=== PATIENT | male | born 1965 | race Caucasian/White ===

== ENCOUNTER 2024-08-29 12:56 | Emergency (ER) | payer MEDICAID ==
[~2024-08-29] VITALS: Ht 175.3 cm; Wt 72.7 kg
[2024-08-29 13:00] VITALS: BP 146/77; PULSE 113; RESP 24; O2SAT 95
[2024-08-29] MEDS: SODIUM CHLORIDE 0.9% 1,000 ML IV ONE (13:30)
[2024-08-29 14:02] LABS: Base Excess 0.5 mmol/L (-2.0-3.0)
[2024-08-29 15:55] LABS: Basophils # (auto) 0 10 ^3/uL (0-0.2); Basophils % (auto) 0.4 % (0.0-2.0); Eosinophils # (auto) 0 10 ^3/uL (0-0.8); Hematocrit 50.7 % (41.0-53.0); Hemoglobin 17.5 g/dL (13.5-17.5); Lymphocytes # (auto) 3.1 10 ^3/uL (0.4-5.4); Lymphocytes % (auto) 25.9 % (10.0-50.0); Mean Corpuscular Hemoglobin 29.7 pg (28.0-32.0); Mean Corpuscular Hgb Conc. 34.5 g/dL (32.0-36.0); Mean Corpuscular Volume 86.1 fL (80.0-100.0); Monocytes % (auto) 8.6 % (0.0-12.0); Neutrophils # (auto) 7.9 10 ^3/uL (1.6-8.6); Neutrophils % (auto) 65.1 % (37.0-80.0); Nucleated Red Blood Cells % 0.1 %; Platelet Count (auto) 238 10^3/uL (140-450); Red Blood Cells 5.89 10^6/uL (4.5-5.90); Red Cell Distribution Width 13.2 % (11.8-14.3); White Blood Cell 12.1 10^3/uL (4.4-10.8)
--- NOTE | 2024-08-29 16:02 | ED.PDOC ---
History of present illness HPI Comments MSE note: 59 Y M history of diabetes BIBA with with CC of hyperglycemia. Per EMS, patient reported nausea and vomiting x1 week. Patient's Accu-Chek was 500 upon arrival to the ED. Patient states he does not currently take any medications for his diabetes. Chief Complaint: Hyperglycemia Time Seen by MD: 13:16 Primary Care Provider: NONE History of present illness: Nurses Notes, Cord Cutter Notes, Medications, Allergies Allergies: Coded Allergies: NO KNOWN ALLERGIES (Unverified , 04/22/14) Information Source: Patient, Emergency Med Personnel Mode of Arrival: EMS Timing: Weeks Duration: Since onset Prehospital treatment: Accucheck Past Medical History PAST MEDICAL HISTORY: DM All Other Systems: Deferred Physical Exam Exam Comments Patient eloped prior to exam General Appearance: Other (Not done) HEENT: NOT DONE Neck: NOT DONE Respiratory: NOT DONE Cardiovascular: NOT DONE Breast Exam: Other Gastrointestinal: NOT DONE Genitalia: Other (Not done) Pelvic: Other (Not done) Rectal: Other (Not done) Extremities: NOT DONE Neurologic: NOT DONE Cerebellar Function: NOT DONE Reflexes: NOT DONE Skin: NOT DONE Lymphatic: NOT DONE Was a procedure done? Was a procedure done?: No Differential Diagnosis (DM) Differential Diagnosis: Dehydration, DKA, Electrolyte Abnormality, Hyperglycemia, Hyperosmolar State, UTI X-Ray, Labs, Meds, VS Vital Signs Date Time Temp Pulse Resp B/P (MAP) Pulse Ox O2 Delivery O2 Flow Rate FiO2 08/29/24 13:00 97.9 113 24 146/77 (100) 95 Lab Test 08/29/24 16:23 08/29/24 14:18 08/29/24 13:55 Range/Units Sodium Level 133 L 136-145 mmol/L Potassium Level 3.8 3.5-5.1 mmol/L Chloride Level 99 98-107 mmol/L Carbon Dioxide Level 26 20-31 mmol/L Anion Gap 8 5-15 Blood Urea Nitrogen 22 9-23 mg/dL Creatinine 1.29 0.700-1.30 mg/dL Glomerular Filtration Rate Calc 63 >90 mL/min BUN/Creatinine Ratio 17.1 10.0-20.0 Serum Glucose 260 H 74-106 mg/dL Calcium Level 9.4 8.7-10.4 mg/dL Total Bilirubin 0.7 0.2-1.0 mg/dL Aspartate Amino Transferase (AST) 33 13-40 U/L Alanine Aminotransferase (ALT) 34 7-40 U/L Alkaline Phosphatase 73 46-116 U/L Troponin I High Sensitivity 20 16 </=54 ng/L Total Protein 7.1 5.7-8.2 g/dL Albumin 4.0 3.2-4.8 g/dL White Blood Count 12.1 H 4.4-10.8 10^3/uL Red Blood Count 5.89 4.5-5.90 10^6/uL Hemoglobin 17.5 13.5-17.5 g/dL Hematocrit 50.7 41.0-53.0 % Mean Corpuscular Volume 86.1 80.0-100.0 fL Mean Corpuscular Hemoglobin 29.7 28.0-32.0 pg Mean Corpuscular Hemoglobin Concent 34.5 32.0-36.0 g/dL Red Cell Distribution Width 13.2 11.8-14.3 % Platelet Count 238 140-450 10^3/uL Mean Platelet Volume 9.3 6.9-10.8 fL Neutrophils (%) (Auto) 65.1 37.0-80.0 % Lymphocytes (%) (Auto) 25.9 10.0-50.0 % Monocytes (%) (Auto) 8.6 0.0-12.0 % Eosinophils (%) (Auto) 0.0 0.0-7.0 % Basophils (%) (Auto) 0.4 0.0-2.0 % Neutrophils # (Auto) 7.9 1.6-8.6 10 ^3/uL Lymphocytes # (Auto) 3.1 0.4-5.4 10 ^3/uL Monocytes # (Auto) 1.0 0-1.3 10 ^3/uL Eosinophils # (Auto) 0 0-0.8 10 ^3/uL Basophils # (Auto) 0 0-0.2 10 ^3/uL Nucleated Red Blood Cells 0.1 % B-Type Natriuretic Peptide 18.38 0-100 pg/mL Beta-Hydroxybutyric Acid 0.569 H < 0.4 mmol/L Blood Gas Specimen Type Arterial Blood Gas Sample Site Left brachial Blood Gas Patient Temperature 37.0 Arterial Blood Date Drawn [id number] Arterial Blood pH 7.531 H 7.350-7.450 Arterial Blood Partial Pressure CO2 25.7 L 35.0-48.0 mmHg Arterial Blood Partial Pressure O2 63.3 L 83.0-108.0 mmHg Arterial Blood HCO3 21.0 21.0-28.0 mmol/L Arterial Blood Oxygen Saturation 93.4 L 94.0-98.0 % Arterial Blood Base Excess 0.5 -2.0-3.0 mmol/L Arterial Blood Oxyhemoglobin 92.7 L 94.0-98.0 % Arterial Blood Carboxyhemoglobin 0.3 L 0.5-1.5 % Arterial Blood Methemoglobin 0.5 0.0-1.5 % Maxwell Test Yes Blood Gas Total Hemoglobin 17.90 H 13.5-17.5 g/dL Blood Gas Modality Room air FiO2 % 21.0 Current Medications Medications (Trade) Dose Ordered Sig/Scott Route Start Time Stop Time Status Last Admin Insulin Human Regular (InsuLIN R) 10 units ONCE ONCE IV 08/29/24 13:30 08/29/24 13:31 DC 08/29/24 16:32 Sodium Chloride 1,000 ml @ 1,000 mls/hr Q1H ONCE IV 08/29/24 13:30 08/29/24 14:29 DC 08/29/24 13:30 X-Ray, Labs, Meds, VS Comment Patient eloped prior to full interview, exam and treatment Time of 1ST Reevaluation: 19:20 Reevaluation 1ST: no answer Patient Education/Counseling: Other (Patient eloped) Family Education/Counseling: No Family Present Departure 1 Departure Time of Disposition: 19:20 Impression: Primary Impression: Hyperglycemia Additional Impression: Nausea & vomiting Qualified Codes: R11.2 - Nausea with vomiting, unspecified Disposition: 07 LEFT AWOL/ELOPED Condition: Other Discharged With: Self Critical Care Note Critical Care Time?: No Stability Stability form required: No Heart Score Heart Score: Heart Score Response (Comments) Value History N/A 0 EKG N/A 0 Age N/A 0 Risk Factors N/A 0 Troponin N/A 0 Total 0 I personally scribed for BOUCHRA JEONG MD ([email or web address]) on 08/29/24 at 16:02. Electronically submitted by Shelia Tipton ([email or web address]). I personally scribed for [facility] on 08/29/24 at 16:08. Electronically submitted by Shelia Tipton ([email or web address]). I personally scribed for BOUCHRA JEONG MD ([facility]) on 08/29/24 at 16:26. Electronically submitted by Shelia Tipton ([email or web address]). BOUCHRA JEONG MD Aug 29, 2024 16:02
[2024-08-29] MEDS: InsuLIN REG 1unit/0.01ml Soln (100units/ml) IV ONE (16:32)
[2024-08-29 17:02] LABS: Alanine Aminotransferase 34 U/L (7-40); Alkaline Phosphatase 73 U/L (46-116); Anion Gap 8 (5-15); Aspartate Aminotransferase 33 U/L (13-40); BUN/Creatinine Ratio 17.1 (10.0-20.0); Bilirubin, Total 0.7 mg/dL (0.2-1.0); Blood Urea Nitrogen 22 mg/dL (9-23); Calcium 9.4 mg/dL (8.7-10.4); Carbon Dioxide 26 mmol/L (20-31); Chloride 99 mmol/L (98-107); Potassium 3.8 mmol/L (3.5-5.1)
[2024-08-29 17:03] LABS: Total Protein 7.1 g/dL (5.7-8.2)
[2024-08-29 17:11] LABS: Glucose 260 mg/dL (74-106); Sodium 133 mmol/L (136-145)
== END 2024-08-29 19:46 | disposition left against medical advice (07) ==
LOC: EDBD 12:56 → ER 12:56
DX: E11.65 Type 2 diabetes mellitus with hyperglycemia (principal)
CPT/HCPCS: 36415; 36600; 80053; 82010; 82805; 83880; 84484; 85025; 96361; 96374; 99283; J1815; J7030